=== PATIENT | female | born 1950 | race Caucasian/White ===

== ENCOUNTER 2023-07-13 15:07 | Emergency (ER) | payer MEDICARE, BC ==
[2023-07-13] MEDS: Sodium Chloride 0.9% 2.5 ML Syringe FLUSH PRN (16:51)
[2023-07-13] MEDS: Sodium Chloride 0.9% 10 ML Syringe FLUSH PRN (16:51)
[2023-07-13 16:55] LABS: BASOPHILS ABSOLUTE AUTO 0.09 K/uL (0.00-0.20); BASOPHILS PERCENT AUTO 0.8 % (0.0-1.0); EOSINOPHILS ABSOLUTE AUTO 0.16 K/uL (0.00-0.45); EOSINOPHILS PERCENT AUTO 1.5 % (0.0-6.0); HEMATOCRIT 38.4 % (37.0-47.0); HEMOGLOBIN 13.7 g/dL (12.0-16.0); IMMATURE GRAN ABSOLUTE AUTO 0.12 K/uL (0.00-0.05); IMMATURE GRAN PERCENT AUTO 1.1 % (0.0-0.4); LYMPHOCYTES ABSOLUTE AUTO 1.81 K/uL (1.00-4.80); LYMPHOCYTES PERCENT AUTO 16.9 % (24.0-44.0); MEAN CORPUSCULAR HEMOGLOBIN 31.4 pg (28.0-32.0); MEAN CORPUSCULAR HGB CONC 35.7 g/dL (32.0-36.0); MEAN CORPUSCULAR VOLUME 87.9 fL (83.0-99.0); MEAN PLATELET VOLUME 9.3 fL (9.4-12.3); MONOCYTES ABSOLUTE AUTO 0.99 K/uL (0.00-0.80); MONOCYTES PERCENT AUTO 9.2 % (0.0-8.0); NEUTROPHILS ABSOLUTE AUTO 7.55 K/uL (1.80-7.70); NEUTROPHILS PERCENT AUTO 70.5 % (41.0-71.0); PLATELET COUNT,PLT 339 K/uL (150-400); RED BLOOD CELL COUNT 4.37 M/uL (4.10-5.30); WHITE BLOOD CELL COUNT,WBC 10.72 K/uL (3.9-11.3)
[2023-07-13 16:56] LABS: BASE EXCESS VENOUS 3.2 (-2.0-3.0); PH,VENOUS 7.44 (7.31-7.41)
[2023-07-13] MEDS: methylPREDNISolone Sodium Succinate 125 MG/2 ML SDV IVPUSH ONE (17:01)
[2023-07-13 17:36] LABS: A/G RATIO 1.1 (0.9-1.6); ALBUMIN 3.7 g/dL (3.4-5.0); BILIRUBIN TOTAL 0.7 mg/dL (0.2-1.0); CALCIUM 9.9 mg/dL (8.5-10.1); CARBON DIOXIDE,CO2 24.3 mmol/L (21.0-32.0); CORONAVIRUS COVID-19 NAA NEGATIVE (NEGATIVE); CREATININE 1.6 mg/dL (0.6-1.0); EST CRCL DRUG DOSING (CG) 32.53 mL/min; INFLUENZA A NAA NEGATIVE (NEGATIVE); INFLUENZA B NAA NEGATIVE (NEGATIVE); MAGNESIUM 1.5 mg/dL (1.8-2.4); PROTEIN TOTAL,TP 7.2 g/dL (6.4-8.2); RESPIRATORY SYNCYTIAL VIR NAA NEGATIVE (NEGATIVE); TSH ULTRASENSITIVE 1.99 uIU/mL (0.36-3.74)
[2023-07-13] MEDS: Sodium Chloride 0.9% 1,000 ML IV ONE (18:27)
[2023-07-13] MEDS: Iopamidol 755 MG/ML 500 ML Multipack Bottle IVPUSH STA (18:57)
[2023-07-13] MEDS: cefTRIAXone 1 GM in Sodium Chloride 0.9% 50 ML IV ONE (19:39)
[2023-07-13 19:43] VITALS: BP 136/77; PULSE 78
== END 2023-07-13 20:09 | disposition home or self-care (01) ==
LOC: MW.ED 15:07
DX: R05.9 Cough, unspecified (principal); Z75.8 Other problems related to medical facilities and other health care; Z79.899 Other long term (current) drug therapy; Z90.49 Acquired absence of other specified parts of digestive tract; Z90.710 Acquired absence of both cervix and uterus; Z87.891 Personal history of nicotine dependence
CPT/HCPCS: 0241U; 36415; 71045; 71275; 80053; 82803; 83735; 83880; 84443; 84484; 85025; 85379; 96361; 96365; 96375; 99284; J0696; J2930; J3490; J7030; Q9967; 93005